=== PATIENT | male | born 1940 | race Caucasian/White ===

== ENCOUNTER 2023-06-24 06:15 | Day surgery (SDC) | payer MEDICARE, OTHER, SELFPAY ==
[2023-06-24] VITALS (7 sets, daily range): BP systolic 130–168; BP diastolic 68–95; BMI 27.0
[2023-06-24] MEDS: NORMOSOL-R 1000 IV (06:30)
== END 2023-06-24 10:08 | disposition home or self-care (01) ==
LOC: SDS 06:15
PROVIDERS: ATTENDING PHYSICIAN Otolaryngology
DX: J32.0 Chronic maxillary sinusitis (principal); Z18.32 Retained tooth
CPT/HCPCS: 31267; 31254; 41899; 88300; 88304; 88311; 87070; 87075; 87205

== ENCOUNTER → 2025-01-22 11:22 | Outpatient (REF) | payer MEDICARE, OTHER, SELFPAY | LOC: RAD 11:22 | PROVIDERS: ATTENDING PHYSICIAN Nurse Practitioner Acute Care | DX: S00.12XA Contusion of left eyelid and periocular area, initial encounter (principal); Z91.81 History of falling; S80.02XA Contusion of left knee, initial encounter | CPT/HCPCS: 70200; 73560 ==